=== PATIENT | female | born 1955 | race Caucasian/White ===

== ENCOUNTER 2020-04-27 07:31 | Day surgery (SDC) | payer MEDICARE, OTHER ==
[~2020-04-27 07:31] MED LIST: Lactated Ringers 1,000 ML IV SCH; Lidocaine 1%/Sod Bicarbonate in NS 8.4% 1 ML Syringe IDERM PRN; Sodium Chloride 0.9% 10 ML Syringe FLUSH PRN
--- NOTE | 2020-04-27 08:38 | PCM.PREANE ---
Preanesthetic Assessment - Procedure Proposed Procedure: Colonoscopy - Anesthesia/Transfusion/Family Hx Anesthesia History: Prior Anesthesia Without Reaction Family History of Anesthesia Reaction: No Transfusion History: No Prior Transfusion(s) - Review of Systems General: Fatigue Pulmonary: No Symptoms Cardiovascular: No Symptoms Gastrointestinal: No Symptoms Neurological: Numbness (in right hand "when it gets cold") Other: Reports: None - Physical Assessment NPO Status Date: 04/26/20 NPO Status Time: 00:00 Vital Signs: Last Vital Signs Temp 36.1 C 04/27/20 08:19 Pulse 94 04/27/20 08:19 Resp 16 04/27/20 08:19 BP 147/90 H 04/27/20 08:19 Pulse Ox 96 04/27/20 08:19 Height: 1.63 m Weight: 71 kg ASA Class: 3 Mental Status: Alert & Oriented x3 Airway Class: Mallampati = 2 Dentition: Reports: Missing Tooth/Teeth, Caries Thyro-Mental Finger Breadths: 3 Mouth Opening Finger Breadths: 3 ROM/Head Extension: Limited/Partial Lungs: Clear to Auscultation, Normal Respiratory Effort Cardiovascular: Regular Rate, Regular Rhythm - Allergies Allergies/Adverse Reactions: Allergies Allergy/AdvReac Type Severity Reaction Status Date / Time acetaminophen [From [place]] AdvReac Confusion Verified 04/27/20 08:15 hydrocodone [From [place]] AdvReac Confusion Verified 04/27/20 08:15 - Blood Blood Available: No Product(s) Available: None - Anesthesia Plan Pre-Op Medication Ordered: None - Acknowledgements Anesthesia Type Planned: MAC Pt an Appropriate Candidate for the Planned Anesthesia: Yes Alternatives and Risks of Anesthesia Discussed w Pt/Guardian: Yes Pt/Guardian Understands and Agrees with Anesthesia Plan: Yes PreAnesthesia Questionnaire HEENT History: Reports: Impaired Vision Cardiovascular History: Reports: Hypertension, Other (See Below) Other Cardiovascular History: palpitations Respiratory History: Reports: COPD, Other (See Below) Other Respiratory History: bronchitis, dypsnea, URI, wheezing Gastrointestinal History: Reports: None, GERD (with spicy food) Genitourinary History: Reports: None COUNTER WEIGHER History: Reports: Other (See Below) Other OB/BYN History: postmenopausal, uterine mass Musculoskeletal History: Reports: None Neurological History: Reports: Other (See Below) Other Neuro History: tremors Psychiatric History: Reports: None Endocrine/Metabolic History: Reports: None Hematologic History: Reports: None Immunologic History: Reports: None Oncologic (Cancer) History: Reports: None Dermatologic History: Reports: None - Infectious Disease History Infectious Disease History: Reports: None - Past Surgical History Head Surgeries/Procedures: Reports: None Cardiovascular Surgical History: Reports: None Respiratory Surgical History: Reports: None GI Surgical History: Reports: None Female Surgical History: Reports: Hysterectomy Male Surgical History: Reports: None Endocrine Surgical History: Reports: None Neurological Surgical History: Reports: None Musculoskeletal Surgical History: Reports: None Oncologic Surgical History: Reports: None Dermatological Surgical History: Reports: None - SUBSTANCE USE Tobacco Use Status *Q: Current Every Day Tobacco User Tobacco Use Within Last Twelve Months: Cigarettes Second Hand Smoke Exposure: No Days Per Week of Alcohol Use: 1 Number of Drinks Per Day: 0 Total Drinks Per Week: 0 Recreational Drug Use History: No - HOME MEDS Home Medications: Home Meds Ramipril [Altace] 5 mg PO DAILY 04/26/20 [History] Tiotropium BR/Olodaterol HCL [Stiolto Respimat] 2 puff INH DAILY 04/26/20 [History] - CURRENT (IN HOUSE) MEDS Current Meds: Current Medications Lactated Ringer's (Ringers, Lactated) 1,000 mls @ 125 mls/hr IV ASDIRECTED ELVIS Stop: 04/27/20 23:00 Last Admin: 04/27/20 08:15 Dose: 125 mls/hr Documented by: Lidocaine/Sodium Bicarbonate (Buffered Lidocaine 1% In Ns 8.4%) 0.25 ml IDERM ONETIME PRN PRN Reason: Prior to IV Start Stop: 04/27/20 18:00 Last Admin: 04/27/20 08:14 Dose: 0.25 ml Documented by: Sodium Chloride (Saline Flush) 10 ml FLUSH ASDIRECTED PRN PRN Reason: Keep Vein Open Stop: 04/27/20 18:00
[2020-04-27] MEDS ORDERED: Lidocaine 1% 6 ML ONE (09:19)
[2020-04-27] MEDS ORDERED: fentaNYL 100 MCG/2 ML SDV ONE (09:19)
[2020-04-27] MEDS ORDERED: Propofol 200 MG/20 ML SDV ONE ×3 (09:19→10:02)
[2020-04-27] MEDS ORDERED: Ondansetron 4 MG/2 ML SDV ONE (09:45)
--- NOTE | 2020-04-27 10:39 | PCM48HPAN ---
Post Anesthesia Note - EVALUATION WITHIN 48HRS OF ANESTHETIC Vital Signs in Normal Range: Yes Patient Participated in Evaluation: Yes Respiratory Function Stable: Yes Airway Patent: Yes Cardiovascular Function Stable: Yes Hydration Status Stable: Yes Pain Control Satisfactory: Yes Nausea and Vomiting Control Satisfactory: Yes Mental Status Recovered: Yes Vital Signs: Last Vital Signs Temp 97.0 F 04/27/20 08:19 Pulse 82 04/27/20 10:30 Resp 16 04/27/20 10:30 BP 119/78 04/27/20 10:30 Pulse Ox 97 04/27/20 10:30
--- NOTE | 2020-04-27 10:54 | PCM.PRNOTE ---
- Free Text/Narrative Note: Date: April 27, 2020 Procedure: diagnostic colonoscopy Indication: positive cologuard test Endoscopist: Luis Betancur MD Findings: Prep was fair. Several small polyps noted throughout the length of the colon, with the largest being about 1 cm in the cecum. Detailed Report: The patient was taken to the endoscopy suite and placed in left lateral decubitus position. Timeout was performed, and monitored anesthesia care initiated. The anus appeared normal. Digital rectal exam was unremarkable. The colonoscope was inserted transanally and advanced to the cecum. The appendiceal orifice was visualized. On slow withdrawal of the scope, mucosal surfaces were carefully inspected. Prep was fair. There was a sessile 1 cm polypoid lesion in the distal cecum, which was biopsied piecemeal with forceps. The base of the tissue was fulgurated. An additional subcentimeter benign- appearing polyp in the ascending colon was biopsied with forceps and the base of the tissue was fulgurated. Several subcentimeter well-circumscribed polyps were identified in the sigmoid colon and proximal rectum. These were all biopsied with forceps. Diverticular disease in the sigmoid was noted. Minor internal hemorrhoidal disease appreciated on retroflexion of the scope within the rectum. Air was suctioned from the colon prior to withdrawal of the scope. The patient tolerated the procedure well.
== END 2020-04-27 11:20 | disposition home or self-care (01) ==
LOC: JD.SDS 07:31
PROVIDERS: ATTEND Surgery
DX: D12.0 Benign neoplasm of cecum (principal); D12.2 Benign neoplasm of ascending colon; K62.1 Rectal polyp; K64.8 Other hemorrhoids; J44.9 Chronic obstructive pulmonary disease, unspecified; F17.210 Nicotine dependence, cigarettes, uncomplicated; I10 Essential (primary) hypertension; Z88.5 Allergy status to narcotic agent; Z79.899 Other long term (current) drug therapy; Z98.890 Other specified postprocedural states
CPT/HCPCS: 45380; J2001; J2405; J2704; J3010; J7120; 00811; 88305

== ENCOUNTER 2024-08-01 07:30 | Emergency (ER) | payer MEDICARE, OTHER ==
[2024-08-01] MEDS: Albuterol/Ipratropium 3.0-0.5 MG/3 ML Neb Soln NEB ONE ×2 (07:45→08:03)
[2024-08-01 08:00] LABS: BASE EXCESS ARTERIAL 6.3 (-2-2.0); BICARBONATE,ARTERIAL 31.3 meq/L (22.0-26.0); O2 SATURATION ARTERIAL 94.3 % (96.0-97.0)
[2024-08-01 08:01] LABS: BASOPHILS PERCENT AUTO 0.3 % (0.0-1.0); EOSINOPHILS ABSOLUTE AUTO 0.4 K/mm3 (0.0-0.4); EOSINOPHILS PERCENT AUTO 3.5 % (0.0-6.0); HEMATOCRIT 41.3 % (37.0-47.0); HEMOGLOBIN 13.6 gm/dl (12.0-16.0); IMMATURE GRAN ABSOLUTE AUTO 0.06 K/mm3 (0.00-0.05); IMMATURE GRAN PERCENT AUTO 0.5 % (0.0-0.4); LYMPHOCYTES ABSOLUTE AUTO 2.2 K/mm3 (1.0-4.8); LYMPHOCYTES PERCENT AUTO 19.1 % (24.0-44.0); MEAN CORPUSCULAR HEMOGLOBIN 31.7 pg (28.0-32.0); MEAN CORPUSCULAR HGB CONC 32.9 g/dl (32.0-36.0); MEAN CORPUSCULAR VOLUME 96.3 fl (83.0-99.0); MONOCYTES ABSOLUTE AUTO 0.9 K/mm3 (0.0-0.8); MONOCYTES PERCENT AUTO 7.4 % (0.0-8.0); NEUTROPHILS PERCENT AUTO 69.2 % (41.0-71.0); PLATELET COUNT,PLT 402 K/mm3 (150-400); RED BLOOD CELL COUNT 4.29 M/mm3 (4.10-5.30); WHITE BLOOD CELL COUNT,WBC 11.57 K/mm3 (3.9-11.3)
[2024-08-01] MEDS: Azithromycin 500 MG in Sodium Chloride 0.9% 250 ML IV ONE (08:09)
[2024-08-01] MEDS: methylPREDNISolone Sodium Succinate 125 MG/2 ML SDV IVPUSH ONE (08:09)
[2024-08-01] MEDS: Lisinopril 10 MG Tab PO ONE (08:09)
[2024-08-01] MEDS: Sodium Chloride 0.9% 500 ML IV ONE (08:09)
[2024-08-01] MEDS: Aspirin 81 MG Tab.Chew PO ONE (08:10)
[2024-08-01 08:39] LABS: A/G RATIO 0.8 (1-2); ALBUMIN 2.8 g/dl (3.4-5.0); ANION GAP 13.1 (5-15); BILIRUBIN TOTAL 0.5 mg/dL (0.2-1.0); BUN/CREATININE RATIO 27.1 (14-18); CALCIUM 9.1 mg/dL (8.5-10.1); CREATININE 0.7 mg/dL (0.55-1.02); EST CRCL DRUG DOSING (CG) 64.58 mL/min; MAGNESIUM 2.1 mg/dL (1.8-2.4); POTASSIUM,K 4.1 mEq/L (3.5-5.1); PROTEIN TOTAL,TP 6.2 g/dl (6.4-8.2)
== END 2024-08-01 12:30 | disposition home or self-care (01) ==
LOC: JD.ED 07:30
DX: J96.01 Acute respiratory failure with hypoxia (principal); J44.1 Chronic obstructive pulmonary disease with (acute) exacerbation; E88.09 Other disorders of plasma-protein metabolism, not elsewhere classified; I10 Essential (primary) hypertension; Z90.710 Acquired absence of both cervix and uterus; Z88.5 Allergy status to narcotic agent; Z79.899 Other long term (current) drug therapy
CPT/HCPCS: 36415; 36600; 71045; 80053; 82550; 82803; 83735; 83880; 84484; 85025; 87428; 93005; 94640; 96365; 96375; 99285; A9270; J0456; J2919; J7030